=== PATIENT | female | born 1970 | race Caucasian/White ===

== ENCOUNTER 2017-02-08 06:11 | Emergency (ER) | payer BC ==
[2017-02-08] MEDS ORDERED: Ondansetron INJ* 2 MG/ML VIAL IV ONE (06:36)
[2017-02-08] MEDS ORDERED: NS 0.9% 1000 ML* 1,000 ML IV ONE (06:36)
[2017-02-08] MEDS ORDERED: Ondansetron INJ* 2 MG/ML VIAL ONE (07:25)
[2017-02-08 07:27] LABS: Hematocrit 39 % (35-47); Hemoglobin 12.9 g/dl (12.0-16.0); Mean Corpuscular HGB Conc 33 g/dl (31-36); Mean Corpuscular Hemoglobin 26 pg (27-31); Mean Corpuscular Volume 77 fL (80-97); Mean Platelet Volume 9 um3 (7.4-10.4); Red Blood Count 5.04 10^6/ul (4.0-5.4); Red Cell Distribution Width 15 % (10.5-15); White Blood Count 10.9 10^3/ul (3.5-10.8)
[2017-02-08 07:41] LABS: Urine Bilirubin Negative (Negative); Urine Glucose Negative (Negative); Urine Nitrite Negative (Negative)
[2017-02-08 07:47] LABS: ALT 8 U/L (7-52); AST 10 U/L (13-39); Albumin 3.9 g/dL (3.2-5.2); Alkaline Phosphatase 49 U/L (34-104); Anion Gap 7 mmol/L (2-11); BUN/Creatinine Ratio 14.3 (8-20); Blood Urea Nitrogen 12 mg/dL (6-24); C Reactive Protein 3.68 mg/L (< 5.00); CO2 Carbon Dioxide 22 mmol/L (22-32); Chloride 105 mmol/L (101-111); EGFR African American 93.9 (>60); Glucose 107 mg/dL (70-100); Lipase 18 U/L (11.0-82.0); Potassium 4.1 mmol/L (3.5-5.0); Sodium 134 mmol/L (133-145); Total Protein 6.9 g/dL (6.4-8.9)
[2017-02-08 08:44] VITALS: BP 133/74
--- NOTE | 2017-02-08 09:09 | RAD ---
INDICATION: Right upper quadrant pain. COMPARISON: Correlation is made with a prior study from May 03, 2016. TECHNIQUE: Multiple real-time images of the right upper quadrant were obtained. FINDINGS: There are multiple gallstones present. No gallbladder wall thickening or pericholecystic fluid is present. The patient had tenderness when scanning directly over the gallbladder. No intra or extrahepatic ductal distention is present. The common bile duct measured 0.2 cm in diameter. The liver is normal in size without significant focal abnormality. The pancreas is partially obscured by overlying bowel gas. The right kidney is normal in size without evidence for hydronephrosis. IMPRESSION: CHOLELITHIASIS WITH PAIN DIRECTLY OVER THE GALLBLADDER POSSIBLY REPRESENTING EARLY ACUTE CHOLECYSTITIS.
--- NOTE | 2017-02-08 13:54 | CONS ---
CONSULTATION REPORT: DATE OF CONSULTATION: 02/08/17 PATIENT OF: Dr. Resendez in emergency room. REFERRED TO: Bassam Stevens MD. REASON FOR CONSULTATION: Right upper quadrant abdominal pain. HISTORY OF PRESENT ILLNESS: Ms. Arellano is a pleasant 46-year-old female who presented to the emerg ency room earlier this morning with complaints of 24 hours of worsening right upper quadrant abdomin al pain. She had similar pain in the past on and off for the past 2 years in account to her known h istory of cholelithiasis. She notes that she had multiple CT scans in the past due to her SHOWER MAID issues that showed cholelithiasis and she notes that the pain usually is tolerable and goes away with the exception of earlier this morning when it got worse with associated nausea, but denies any vomiting. Her pain eventually got better upon arrival to the ED; however, her ultrasound showed possibility of positive Siu sign for which we were asked to see the patient for further evaluation. She note s a history of multiple SHOWER MAID procedures and a laparoscopy in the past due to adhesions. Approximately 20 years ago or so, the patient had 2 episodes of ectopic for which she had multiple diag nostic laparoscopies in this account followed by more laparoscopies for lysis of adhesions. Her mos t recent surgery was laparoscopy back on 01/24/16, with lysis of adhesions and small bowel resection with oophorectomy due to adhesions. She otherwise is a relatively healthy middle-aged female who a ppears to be comfortable at this time of consultation. She notes associated nausea with her pain th at is mostly localized to the right upper quadrant with no radiation or any other associated symptom s. She denied any fever, chills, changes in the color of stool or urine or jaundice. PAST MEDICAL HISTORY: As mentioned above, significant for hypothyroidism and multiple SHOWER MAID procedure s related to ectopic with complicated adhesions that required a small bowel resection in t he most recent surgery. PAST SURGICAL HISTORY: Significant for ectopic with diagnostic laparoscopy multiple times in the past, most recently a year ago with lysis of adhesions and resection of a small portion of s mall bowel as well as a left oophorectomy. She also has history of left-sided nephrolithiasis. CURRENT MEDICATIONS: Her current medications at home include: 1. Synthroid 137 mcg once daily. 2. Zofran 8 mg ODT q.6 hours as needed for nausea. 3. Vicodin every 6 hours as needed for pain. ALLERGIES: She is allergic to PENICILLIN, SULFA, TETRACYCLINE and ERYTHROMYCIN. FAMILY HISTORY: The patient is . 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 SOCIAL HISTORY: The patient is a nonsmoker who drinks alcohol rarely and denies illicit drug use. REVIEW OF SYSTEMS: See HPI, otherwise negative. She denies any headache, dizziness, blurred vision or diplopia. No cough, sore throat, wheezes, shortness of breath, or chest pain. No back pain, fl ank pain, hematuria, dysuria, or urinary frequency. She admits to right upper quadrant abdominal pa in with associated nausea, but denies any vomiting, changes in the bowel habits, jaundice, or change in the color of stool or urine. No fever, chills, night sweats or recent weight loss. PHYSICAL EXAMINATION: GENERAL: She is a pleasant healthy appearing middle-aged female in no acute d istress or discomfort at the time of consultation. VITALS: Her most recent set of vitals reveal temperature of 98.4, pulse of 84, blood pressure 133/7 4, and O2 sat of 98% on room air. HEENT: Sclerae anicteric. PERRLA. EOMs intact. Oropharynx is pink, moist with no exudate. NECK: Supple. Trachea midline. No cervical adenopathy, thyromegaly, or JVD. LUNGS: Clear to auscultation bilaterally. HEART: Regular rate and rhythm. Normal S1 and S2 without rubs, murmurs, or gallops. BACK: With normal curvature. No CVA tenderness. BREASTS: Deferred at this time. ABDOMEN: Soft and nondistended. There is mild right upper quadrant tenderness on deep palpation no avinash, but no rigidity, guarding, or rebound tenderness. There is no hernias, masses, or hepatospleno megaly. Small incisions from prior multiple laparoscopies noted, all well healed, with no evidence of any incisional hernias. Siu sign was negative. EXTREMITIES: Without cyanosis, clubbing, or edema. NEUROLOGIC: Grossly intact. RECTAL: Deferred at this time. LABORATORY WORKUP: The patient had a CBC showing a white count of 10,900, hemoglobin 12.9, hematocr it 39, and platelets of 279,000. Her chemistry was essentially within normal limits including LFTs, amylase, and lipase as well as C- reactive protein. Her urine was clear and negative for test. ACCESSORY DIAGNOSTIC DATA: The patient had a right upper quadrant ultrasound that revealed evidence of cholelithiasis with very mild pain showing sonographic Siu sign, but no wall thickening or pe richolecystic fluid. IMPRESSION: A 46-year-old female with recurrent right upper quadrant abdominal pain, likely in acco unt of symptomatic cholelithiasis. PLAN: I discussed with the patient the findings of her physical exam as well as ultrasound. She ap pears to be very comfortable at this time and she wishes to go home. I discussed with her the optio n of going forward with surgery today given her ongoing intermittent symptoms; however, the patient has plans at home for the next couple of months and she would like to postpone surgery if she could until she is ready. I discussed with her the necessity to follow up with us in the office next week to discuss surgery in more details and hopefully do it electively sometime in the near future. She appears to understand and she will return to the emergency room if there is any recurrent or worsen ing abdominal pain. Otherwise, she will be clinically stable for discharge and will follow up with us as an outpatient next week. JODY KIDD [id number]/[facility] #: [id number]
--- NOTE | 2017-02-09 07:57 | ED ---
Lakeisha South Alfonso, scribed for Adam Resendez MD on 02/08/17 at 0731 . Abdominal Pain/Female - HPI Summary HPI Summary: This patient is a 46 y.o F presenting to [facility] c/o sharp left flank pain which began a few days ago. The pain is rated in severity 5-6/10 at its worst and currently 1/10. The pain does not radiate. Secondary to the pain, she awoke at 0400 with a headache and nausea. Denies vomiting, diarrhea, SOB, and CP. Sx alleviated spontaneously and aggravated by nothing. She is currently experiencing a menstrual period. PMHx of renal calculi, hypothyroidism, and chronic constipation. PSHx of section, and small bowel resection. - History of Current Complaint Chief Complaint: EDAbdPain Stated Complaint: DIZZY/RUQ PAIN/NAUSEA Time Seen by Provider: 02/08/17 07:14 Hx Obtained From: Patient Hx Last Menstrual Period: 07/05/15 Onset/Duration: Sudden Onset, Lasting Days - a few, Resolved Timing: Constant - while present Severity Initially: Moderate Severity Currently: Mild Pain Intensity: 1 Pain Scale Used: 0-10 Numeric Location: Flank - left Radiates: No Character: Sharp Aggravating Factor(s): Nothing Alleviating Factor(s): Nothing Associated Signs and Symptoms: Positive: Nausea, Other: - Negative SOB; Positive Headache. Negative: Chest Pain, Vomiting, Diarrhea Allergies/Adverse Reactions: Allergies Allergy/AdvReac Type Severity Reaction Status Date / Time Penicillins Allergy Intermediate Rash Verified 02/08/17 06:32 Sulfa Drugs Allergy Intermediate Rash Verified 02/08/17 06:32 Tetracycline Allergy Intermediate Rash Verified 02/08/17 06:32 Erythromycin AdvReac Intermediate N/V Verified 02/08/17 06:32 Home Medications: Home Medications Ondansetron [Zofran 8 MG Odt] 8 mg PO Q6HR PRN 02/08/17 [History Confirmed 02/08] PMH/Surg Hx/FS Hx/Imm Hx Endocrine/Hematology History: Reports: Hx Thyroid Disease - Hypo Denies: Hx Diabetes Respiratory History: Denies: Hx Asthma - Cancer History Cancer Type, Location and Year: ECTOPIC WITH REMOVAL OF FALLOPIAN TUBE , X2 Hx Chemotherapy: No Hx Radiation Therapy: No - Surgical History Surgery Procedure, Year, and Place: LAPEROTXOPY, SINUS SURGERY 2003, ECTOPIC WITH REMOVAL OF FALLOPIAN TUBE, X2 Infectious Disease History: No Infectious Disease History: Denies: Traveled Outside the [place] in Last 30 Days - Family History Known Family History: Positive: Hypertension - Social History Alcohol Use: Occasionally Substance Use Type: Reports: None Smoking Status (MU): Never Smoked Tobacco Review of Systems Negative: Chest Pain Negative: Shortness Of Breath Positive: Abdominal Pain - Left flank pain, Nausea. Negative: Vomiting, Diarrhea Positive: Headache All Other Systems Reviewed And Are Negative: Yes Physical Exam - Summary Physical Exam Summary: VITAL SIGNS: Reviewed. GENERAL: Patient is an overweight female who is lying comfortable in the stretcher. Patient is not in any acute respiratory distress. HEAD AND FACE: Normocephalic and atraumatic. EYES: PERRLA, EOMI x 2, No injected conjunctiva. EARS: Hearing grossly intact. Ear canals and tympanic membranes are WNL. MOUTH: Oropharynx within normal limits. NECK: Supple, trachea is midline, no adenopathy, no JVD. CHEST: Symmetric, no tenderness at palpation LUNGS: Clear to auscultation bilaterally. No wheezing or crackles. CVS: RRR, S1 and S2 present, no murmurs or gallops appreciated. ABDOMEN: Soft. Positive RUQ tenderness. No CVA tenderness. No signs of distention. Positive bowel sounds. No rebound no guarding, and no masses palpated. No abdominal bruit or pulsations. EXTREMITIES: FROM in all major joints, no edema, no cyanosis or clubbing. NEURO: Alert and oriented x 3. No acute neurological deficits. Speech is normal. SKIN: Dry and warm Triage Information Reviewed: Yes Vital Signs On Initial Exam: Initial Vitals Temp Pulse Resp BP Pulse Ox 97.5 F 65 18 135/92 100 02/08/17 06:18 02/08/17 06:18 02/08/17 06:18 02/08/17 06:18 02/08/17 06:18 Vital Signs Reviewed: Yes - Radha Coma Scale Coma Scale Total: 15 Diagnostics - Vital Signs Vital Signs Temp Pulse Resp BP Pulse Ox 02/08/17 06:30 98.5 F 67 16 126/75 100 02/08/17 06:18 97.5 F 65 18 135/92 100 - Laboratory Lab Results: Lab Results 02/08/17 02/08/17 02/08/17 Range/Units 06:55 06:55 06:55 WBC 10.9 H (3.5-10.8) 10^3/ul RBC 5.04 (4.0-5.4) 10^6/ul Hgb 12.9 (12.0-16.0) g/dl Hct 39 (35-47) % MCV 77 L (80-97) fL MCH 26 L (27-31) pg MCHC 33 (31-36) g/dl RDW 15 (10.5-15) % Plt Count 279 (150-450) 10^3/ul MPV 9 (7.4-10.4) um3 Neut % (Auto) 83.6 H (38-83) % Lymph % (Auto) 9.6 L (25-47) % Schleicher % (Auto) 4.7 (1-9) % Eos % (Auto) 1.5 (0-6) % Baso % (Auto) 0.6 (0-2) % Absolute Neuts (auto) 9.1 H (1.5-7.7) 10^3/ul Absolute Lymphs (auto) 1.0 (1.0-4.8) 10^3/ul Absolute Monos (auto) 0.5 (0-0.8) 10^3/ul Absolute Eos (auto) 0.2 (0-0.6) 10^3/ul Absolute Basos (auto) 0.1 (0-0.2) 10^3/ul Absolute Nucleated RBC 0 10^3/ul Nucleated RBC % 0 Sodium 134 (133-145) mmol/L Potassium 4.1 (3.5-5.0) mmol/L Chloride 105 (101-111) mmol/L Carbon Dioxide 22 (22-32) mmol/L Anion Gap 7 (2-11) mmol/L BUN 12 (6-24) mg/dL Creatinine 0.84 (0.51-0.95) mg/dL Est GFR ( Amer) 93.9 (>60) Est GFR (Non-Af Amer) 73.0 (>60) BUN/Creatinine Ratio 14.3 (8-20) Glucose 107 H (70-100) mg/dL Lactic Acid 1.0 (0.5-2.0) mmol/L Calcium 9.0 (8.6-10.3) mg/dL Total Bilirubin 0.60 (0.2-1.0) mg/dL AST 10 L (13-39) U/L ALT 8 (7-52) U/L Alkaline Phosphatase 49 (34-104) U/L C-Reactive Protein 3.68 (< 5.00) mg/L Total Protein 6.9 (6.4-8.9) g/dL Albumin 3.9 (3.2-5.2) g/dL Globulin 3.0 (2-4) g/dL Albumin/Globulin Ratio 1.3 (1-3) Lipase 18 (11.0-82.0) U/L Beta HCG, Quant < 0.60 mIU/mL Urine Color Urine Appearance Urine pH (5-9) Ur Specific [place] (1.010-1.030) Urine Protein (Negative) Urine Ketones (Negative) Urine Blood (Negative) Urine Nitrate (Negative) Urine Bilirubin (Negative) Urine Urobilinogen (Negative) Ur Leukocyte Esterase (Negative) Urine Glucose (Negative) 02/08/17 Range/Units 07:30 WBC (3.5-10.8) 10^3/ul RBC (4.0-5.4) 10^6/ul Hgb (12.0-16.0) g/dl Hct (35-47) % MCV (80-97) fL MCH (27-31) pg MCHC (31-36) g/dl RDW (10.5-15) % Plt Count (150-450) 10^3/ul MPV (7.4-10.4) um3 Neut % (Auto) (38-83) % Lymph % (Auto) (25-47) % Schleicher % (Auto) (1-9) % Eos % (Auto) (0-6) % Baso % (Auto) (0-2) % Absolute Neuts (auto) (1.5-7.7) 10^3/ul Absolute Lymphs (auto) (1.0-4.8) 10^3/ul Absolute Monos (auto) (0-0.8) 10^3/ul Absolute Eos (auto) (0-0.6) 10^3/ul Absolute Basos (auto) (0-0.2) 10^3/ul Absolute Nucleated RBC 10^3/ul Nucleated RBC % Sodium (133-145) mmol/L Potassium (3.5-5.0) mmol/L Chloride (101-111) mmol/L Carbon Dioxide (22-32) mmol/L Anion Gap (2-11) mmol/L BUN (6-24) mg/dL Creatinine (0.51-0.95) mg/dL Est GFR ( Amer) (>60) Est GFR (Non-Af Amer) (>60) BUN/Creatinine Ratio (8-20) Glucose (70-100) mg/dL Lactic Acid (0.5-2.0) mmol/L Calcium (8.6-10.3) mg/dL Total Bilirubin (0.2-1.0) mg/dL AST (13-39) U/L ALT (7-52) U/L Alkaline Phosphatase (34-104) U/L C-Reactive Protein (< 5.00) mg/L Total Protein (6.4-8.9) g/dL Albumin (3.2-5.2) g/dL Globulin (2-4) g/dL Albumin/Globulin Ratio (1-3) Lipase (11.0-82.0) U/L Beta HCG, Quant mIU/mL Urine Color Yellow Urine Appearance Clear Urine pH 6.0 (5-9) Ur Specific [place] 1.012 (1.010-1.030) Urine Protein Negative (Negative) Urine Ketones Trace H (Negative) Urine Blood Negative (Negative) Urine Nitrate Negative (Negative) Urine Bilirubin Negative (Negative) Urine Urobilinogen Negative (Negative) Ur Leukocyte Esterase Negative (Negative) Urine Glucose Negative (Negative) Result Diagrams: 02/08/17 06:55 02/08/17 06:55 Lab Statement: Any lab studies that have been ordered have been reviewed, and results considered in the medical decision making process. - Ultrasound No standard instances Ultrasound Interpretation: Positive (See Comments) Ultrasound Interpretation Completed By: Radiologist - CHOLELITHIASIS WITH PAIN DIRECTLY OVER THE GALLBLADDER POSSIBLY REPRESENTING EARLY ACUTE CHOLECYSTITIS. Re-Evaluation - Re-Evaluation First Eval Re-Evaluation Time: 10:46 Change: Improved Comment: Pt is feeling significantly better. She has no pain, nausea or vomiting. Abdominal Pain Fem Course/Dx - Course Course Of Treatment: This patient is a 46 y.o F presenting to [facility] c/o sharp left flank pain which began a few days ago. The pain is rated in severity 5-6/ 10 at its worst and currently 1/10. The pain does not radiate. Secondary to the pain, she awoke at 0400 with a headache and nausea. Denies vomiting, diarrhea, SOB, and CP. Sx alleviated spontaneously and aggravated by nothing. She is currently experiencing a menstrual period. PMHx of renal calculi, hypothyroidism , and chronic constipation. PSHx of section, and small bowel resection. Test results show an increase in WBC of 10.9 without bands. Glucose of 107. AST within normal limits. Urinalysis negative for UTI. Abdomen US shows cholelithiasis with pain directly over the gallbladder. At this point, the patient was given IV fluids. She is asymptomatic. The symptoms have resolved. I discussed the case with a PA from Dr. Stevens's office (Mendoza) who spoke with Dr. Stevens. Dr. Stevens recommended that the patient be discharged to home with pain medication and follow up in the office in the next few days. This plan has been discussed with the patient and they agree. I gave the patient instructions to return to the ED if they develop any increase in pain, nausea, vomiting, fever, or chills. The patient understands and agrees. She is hemodynamically stable and A&Ox3. - Diagnoses Differential Diagnosis: Positive: Gall Bladder Disease, Hepatitis, Pancreatitis Provider Diagnoses: Cholelithiasis - Provider Notifications Discussed Care Of Patient With: Bassam Stevens Time Discussed With Above Provider: 09:47 Instructed by Provider To: Have Pt Call For Appt. - Discussed with a PA from Dr. Stevens's office (Mendoza) who spoke with Dr. Stevens. He recommended that the pt be discharged to home and follow up in the office. He requested pain medications for the pt with discharge. Discharge - Discharge Plan Condition: Stable Disposition: HOME Prescriptions: HYDROcodone/ACETAMIN 5-325 MG* [[place] 5-325 TAB*] 1 tab PO Q6H PRN #10 tab MDD 4 tabs / day PRN Reason: Pain Patient Education Materials: Gallstones (ED) Referrals: Bassam Stevens MD [Medical Doctor] - 3 Days (Call Dr. Stevens's office to schedule an appointment. ) The documentation as recorded by the scribe, Caetta,Shamir accurately reflects the service I personally performed and the decisions made by me, Adam Resendez MD.
== END 2017-02-08 11:05 | disposition home or self-care (01) ==
LOC: ED 06:11
DX: K80.20 Calculus of gallbladder without cholecystitis without obstruction (principal); R10.84 Generalized abdominal pain; R11.0 Nausea; R51 Headache
CPT/HCPCS: 36415; 76705; 80053; 81003; 83605; 83690; 84702; 85025; 86140; 96374; 96376; 99282; J2405

== ENCOUNTER 2017-04-08 13:59 | Emergency (ER) | payer BC ==
[2017-04-08 14:12] VITALS: BP 123/67
--- NOTE | 2017-04-08 14:18 | UC ---
Complaint Female HPI - HPI Summary HPI Summary: several day history of frequency and dysuria. Just began menses, which tends to relieve urethral discomfort but has not done so. Continues to have bladder spasm and some mild back pain. No fever or chills. Remote history of UTI. Has had recent treatment with clindamycin post dental fracture. - History Of Current Complaint Chief Complaint: UCGU Stated Complaint: URINARY COMPLAINT Time Seen by Provider: 04/08/17 14:15 Hx Obtained From: Patient Hx Last Menstrual Period: 04/07/17 ?: No Onset/Duration: Gradual Onset, Lasting Days - 3 Timing: Intermittent, Lasting Minutes Severity Initially: Mild Severity Currently: Moderate Character: Dull, Burning Aggravating Factor(s): Urination Alleviating Factor(s): Nothing Associated Signs And Symptoms: Positive: Back Pain - Risk Factors Ectopic Risk Factor: Negative Ovarian Torsion Risk Factor: Negative - Allergies/Home Medications Allergies/Adverse Reactions: Allergies Allergy/AdvReac Type Severity Reaction Status Date / Time Penicillins Allergy Intermediate Rash Verified 04/08/17 14:08 Sulfa Drugs Allergy Intermediate Rash Verified 04/08/17 14:08 Tetracycline Allergy Intermediate Rash Verified 04/08/17 14:08 Erythromycin AdvReac Intermediate N/V Verified 04/08/17 14:08 Home Medications: Home Medications Sertraline* [Zoloft*] 25 mg PO DAILY 04/08/17 [History Confirmed 04/08/17] PMH/Surg Hx/FS Hx/Imm Hx Endocrine History: Hypothyroidism - Surgical History Surgical History: Yes Surgery Procedure, Year, and Place: LAPEROSCOPY, SINUS SURGERY 2003, ECTOPIC WITH REMOVAL OF FALLOPIAN TUBE, X2 - Family History Known Family History: Positive: Hypertension - Social History Occupation: Employed Full-time Lives: With Family Alcohol Use: Occasionally Substance Use Type: None Smoking Status (MU): Never Smoked Tobacco Review of Systems Constitutional: Negative Skin: Negative Eyes: Negative ENT: Other - recent dental fracture being addressed. Respiratory: Negative Cardiovascular: Negative Gastrointestinal: Other - no diarrhea as a result of clinda Genitourinary: Dysuria, Frequency, Urgency Motor: Negative Neurovascular: Negative Musculoskeletal: Negative Neurological: Negative Psychological: Negative All Other Systems Reviewed And Are Negative: Yes Physical Exam Triage Information Reviewed: Yes Appearance: Well-Appearing, No Pain Distress Vital Signs: Initial Vital Signs Temp 98.2 F 04/08/17 14:01 Pulse 70 04/08/17 14:01 Resp 14 04/08/17 14:01 BP 123/67 04/08/17 14:01 Pulse Ox 100 04/08/17 14:01 Vital Signs Reviewed: Yes ENT Exam: Normal Respiratory: Positive: Lungs clear, Normal breath sounds Cardiovascular: Positive: RRR, No Murmur Abdomen Description: Positive: Nontender, No Organomegaly, Soft. Negative: CVA Tenderness (R), CVA Tenderness (L) Neurological Exam: Normal Psychological Exam: Normal Skin Exam: Normal Diagnostics - Laboratory Diagnostic Studies Completed/Ordered: UA with white cells and esterase positive. Complaint Female Dx - Course Course Of Treatment: macrodantin for UTI\pyridium as bladder analgesic - Differential Dx/Diagnosis Provider Diagnoses: UTI Discharge - Discharge Plan Condition: Stable Disposition: HOME Prescriptions: Nitrofurantoin Monohyd Macro [Macrobid] 100 mg PO BID #14 cap Phenazopyridine 200 mg (NF) [Pyridium 200 MG tab *] 200 mg PO TID PRN #6 tab PRN Reason: Spasms - Bladder Patient Education Materials: Urinary Tract Infection in Women (ED) Additional Instructions: Begin macrobid for treatment of bladder infection. Use pyridium for bladder spasm. The culture will be available in 2 days and if you need a change of antibiotics you will be notified. Ensure a high intake of fluids. Take pyridium with food, please, because it can cause nausea.
== END 2017-04-08 14:46 | disposition home or self-care (01) ==
LOC: UCCORT 13:59
DX: N39.0 Urinary tract infection, site not specified (principal); E03.9 Hypothyroidism, unspecified; Z87.440 Personal history of urinary (tract) infections; Z88.3 Allergy status to other anti-infective agents; Z88.0 Allergy status to penicillin; Z88.2 Allergy status to sulfonamides
CPT/HCPCS: 81003; 87077; 87086; 87186; 99212; G0463

== ENCOUNTER 2018-06-05 15:10 | Emergency (ER) | payer BC ==
[2018-06-05 15:50] VITALS: BP 154/85
--- NOTE | 2018-06-06 08:07 | UC ---
- Progress Note Progress Note: NO X-RAYS 06/05/18 Discharge - Sign-Out/Discharge Documenting (check all that apply): Patient Departure All imaging exams completed and their final reports reviewed: No Studies - Discharge Plan Condition: Fair Disposition: LEFT WITHOUT BEING SEEN Referrals: Antonietta Colon MD [Primary Care Provider] - - Billing Disposition and Condition Condition: FAIR Disposition: Left Without Being Seen
== END 2018-06-05 16:58 | disposition left against medical advice (07) ==
LOC: UCEAST 15:10
DX: Z53.21 Procedure and treatment not carried out due to patient leaving prior to being seen by health care provider (principal)

== ENCOUNTER 2018-11-15 16:15 | Emergency (ER) | payer SELFPAY ==
--- OUTSIDE RECORDS SUMMARY | 2018-11-15 16:24 | XMS REPORT | Continuity of Care Document ---
:1970 External Reference #:[id number] Author Name Kiera Gonzalez Care Team Providers Name Role Phone Antonietta Colon MD Primary Care Physician Unavailable Payers Date Identification Numbers Payment Provider Subscriber Effective: 2015 Policy Number: [id number] [employer] Charlotte Bustos PayID: [id number] [address] [address] [place] [address] Advance Directives Description No Information Available Problems Date Description Provider Status Onset: 10/27/2015 Localized, primary osteoarthritis May Lenz M.D. Active Family History Date Family Member(s) Observation Comments General Hypertension Social History Type Date Description Comments Sex Unknown Marital Status Single Lives With Boyfriend Occupation licensed mortgage loan officer Tobacco Use Start: Unknown Never Smoked Cigarettes Smoking Status Reviewed: 10/31/18 Never Smoked Cigarettes ETOH Use Currently consumes 3-4 glasses of wine alcohol per week Tobacco Use Start: Unknown Patient has never smoked Recreational Drug Use Denies Drug Use Exercise Type/Frequency Exercises sporadically Allergies, Adverse Reactions, Alerts Date Description Reaction Status Severity Comments 10/27/2015 Penicillin Active 10/27/2015 Sulfa Antibiotics Active 09/20/2018 Erythromycin Active Medications Medication Date Status Form Strength Qnty SIG Indications Ordering Provider Synthroid / Active Tablets 150mcg 1 by mouth Unknown 0000 every day Ibuprofen / Active Capsules 200mg as needed Unknown 0000 Citalopram / Active Tablets 10mg take 1.5 Jander, Hydrobromide 0000 tabs daily MD Antonietta by mouth Zofran / Active prn for Unknown 0000 migraines Acid Security Architect / Active Tablets 150mg 1 by mouth Unknown 0000 twice a day Naproxen 10/27/ Hx Tablets 500mg 60tabs 1 tablet M17.11 Ginette 2015 - with food Bordoni, 05/02/ by mouth 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 Ortho / Hx Tablets 0.18/0.215 1 by mouth Unknown Tri-Cyclen 0000 - /0.25 every day (28) 05/01/ mg-35 mcg 2016 Zoloft / Hx Tablets 25mg 1 by mouth Unknown 0000 - every day 2017 Medications Administered in Office Medication Date Status Form Strength Qnty SIG Indications Ordering Provider Celestone 3 mg Administered Injection Delfin M and 3mg 018 MD Beth Celestone 3 mg Administered Injection Delfin M and 3mg 017 MD Beth Immunizations Description No Information Available Vital Signs Date Vital Result Comment 10/31/2018 8:15am Height 65 inches 5'5" Heart Rate 62 /min BP Systolic 138 mmHg BP Diastolic 76 mmHg O2 % BldC Oximetry 100 % 09/20/2018 8:33am Height 65 inches 5'5" Heart Rate 72 /min BP Systolic 128 mmHg BP Diastolic 86 mmHg Body Temperature 98.3 F Pain Level 2 02/15/2018 8:11am Height 65 inches 5'5" Weight 174.00 lb Heart Rate 76 /min BP Systolic Sitting 110 mmHg BP Diastolic Sitting 64 mmHg Respiratory Rate 16 /min Pain Level 3 BMI (Body Mass Index) 29.0 kg/m2 05/04/2017 10:41am Height 65 inches 5'5" Weight 174.00 lb BP Systolic Sitting 122 mmHg BP Diastolic Sitting 66 mmHg Respiratory Rate 16 /min Pain Level 1 with activity can go up to an 8 BMI (Body Mass Index) 29.0 kg/m2 10/27/2015 9:35am Height 65 inches 5'5" Weight 180.00 lb Heart Rate 77 /min BP Systolic 127 mmHg BP Diastolic 82 mmHg BMI (Body Mass Index) 30.0 kg/m2 Results Description No Information Available Procedures Date Code Description Status 02/15/2018 95928 Rad Shoulder Comp, Min. 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 right knee M25.561 Pain in right knee M25.461 Effusion, right knee Plan of Treatment 10/31/2018 - ALISIA Sands03.9 Hypothyroidism, unspecifiedFollow up: follow up in 1 monthRecommendations:Diet: AIP (autoimmune paleo) - mostly plant based with healthy sources of protein. No dairy, No grains, No sugar, No Nightshades. Remove sugar alcohols and only use very sparingly these have been shownto affect your microbiome in a negative way, some evidence that shows leads to obesity and continuesto feed sugar cravings. Foods that can negatively impact immune function: Lectins: Lectins are carbohydrate-binding proteins that are present in all foods but can be difficult to digest and increase gut barrier damage. Toxic lectins are found in legumes and grains. Soaking, sprouting, and fermenting decrease lectin content. Phytic Acid: phytic acid is a component of grains, seeds, and legumes that limits the activity of digestive enzymes. This can damage the gut barrier and contribute to dysbiosis. Soaking, sprouting, and fermenting decrease phytic content. Gluten: gluten is a component of many grain products such as wheat, barley and rye. Exposure to gluten can activate zonulin in the intestines and contribute to intestinal permeability. Lactose and Casein: certain components of milk can contribute to intestinal permeability, especially if they have gone through traditional pasteurization andhomogenization. The negative effects of the resulting protein changes can be decreased, as in the case of grass fed milk from cows. Nightshade : These plants contain an alkaloid that can be detrimental to the intestinal barrier. Nightshades include tomatoes, peppers, and eggplants. These are some of the most inflammatory foods: alcohol, caffeine, sugar, milk, gluten products , fast food, fried foods, processed meat, corn, trans fats, [place]-6 fatty acids , cheese. Possible allergic/Inflammatory Foods: tree nuts, soy, eggs, shellfish , fish, gluten, meat, yogurt Dr. Hernández - Book and cookbook Ketotarian Consider making bone broth and drinking 2x daily Anti-inflammatory Foods : organic vegetables, organic fruits, raw seeds, organic herbs & spices, extra virgin olive oil, unrefined coconut oil.R53.83 Other fatigueRecommendations:suspect multifactorial. Sleep is very important at least 7-9 hours a night. Exercise is important - swimming is low impact on knee Meditation 5 minutes a day Breathing 4-7-8 (Slade Reaves you tube) Podcasts [facility] - Dr. Macias Broken Brain series - Dr. MaciasM25.562 Pain in left kneeRecommendations:Nutrient Support for Inflammation: [place]-3 fatty acids - 5732-2080 mg/day (non GMO, low Mercury fish oil) Turmeric - 850 - 1000 mg/day split in several doses Vitamin C 1000 mg day Zinc 15 mg day N- acetyl cysteine 500 mg day Vitamin D 2000 units/day Exercise: 30 mins 5-7 days a week - low impact continue ortho treatments
[2018-11-15 16:47] VITALS: BP 151/89
--- NOTE | 2018-11-15 18:17 | UC ---
Respiratory Complaint HPI - HPI Summary HPI Summary: pt c/o chest pain s/p choking on food earlier this afternoon while eating a turkey sandwich. Pt states that she momentarily passed out and heimlich manuever was performed. Pt states that she " was shaken, but cleaned herself up and continued to work." Pt works at a doctor's office. Pt reports that an ambulance was called but she declined. Pt know reports that she now has chest discomfort with movement but has no difficulty breathing - History of Current Complaint Chief Complaint: UCChestPain Stated Complaint: CHEST AND BACK PAIN Time Seen by Provider: 11/15/18 17:29 Hx Obtained From: Patient Hx Last Menstrual Period: April 2018 ?: No Onset/Duration: Gradual Onset, Lasting Hours Timing: Intermittent Episodes - with movement Severity Initially: Mild Severity Currently: Mild Pain Intensity: 2 Aggravating Factors: Deep Breaths Alleviating Factors: Spontaneous Resolution Associated Signs And Symptoms: Positive: Negative - Risk Factors Pulmonary Embolism Risk Factors: Negative Cardiac Risk Factors: Negative Pseudomonas Risk Factors: Negative Tuberculosis Risk Factors: Negative - Allergies/Home Medications Allergies/Adverse Reactions: Allergies Allergy/AdvReac Type Severity Reaction Status Date / Time erythromycin base Allergy Rash Verified 11/15/18 16:31 Penicillins Allergy Rash Verified 11/15/18 16:31 Sulfa (Sulfonamide Allergy Rash Verified 11/15/18 16:31 Antibiotics) Tetracyclines Allergy Nausea And Verified 11/15/18 16:31 Vomiting PMH/Surg Hx/FS Hx/Imm Hx Previously Healthy: Yes - Surgical History Surgical History: Yes Surgery Procedure, Year, and Place: LAPEROSCOPY, SINUS SURGERY 2003, ECTOPIC WITH REMOVAL OF FALLOPIAN TUBE, X2 - Family History Known Family History: Positive: Unknown, Hypertension - Social History Occupation: Employed Full-time Lives: With Family Alcohol Use: Occasionally Substance Use Type: None Smoking Status (MU): Never Smoked Tobacco Have You Smoked in the Last Year: No Review of Systems All Other Systems Reviewed And Are Negative: Yes Constitutional: Positive: Negative Skin: Positive: Negative Eyes: Positive: Negative ENT: Positive: Negative Respiratory: Positive: Negative Cardiovascular: Positive: Chest Pain - that is with movement Gastrointestinal: Positive: Negative Genitourinary: Positive: Negative Motor: Positive: Negative Neurovascular: Positive: Negative Musculoskeletal: Positive: Negative Neurological: Positive: Negative Psychological: Positive: Negative Is Patient Immunocompromised?: No Physical Exam Triage Information Reviewed: Yes Appearance: Well-Appearing Vital Signs: Initial Vital Signs Temp 98.3 F 11/15/18 16:24 Pulse 84 11/15/18 16:24 Resp 18 11/15/18 16:24 BP 151/89 11/15/18 16:24 Pulse Ox 100 11/15/18 16:24 Vital Signs Reviewed: Yes Eye Exam: Normal ENT Exam: Normal Dental Exam: Normal Neck exam: Normal Respiratory Exam: Normal Respiratory: Positive: Lungs clear, Normal breath sounds, No respiratory distress, No accessory muscle use Cardiovascular Exam: Normal Musculoskeletal Exam: Normal Neurological Exam: Normal Psychological Exam: Normal Skin Exam: Normal Diagnostics - Radiology No standard instances Radiology Interpretation Completed By: Radiologist - IMPRESSION: NO EVIDENCE FOR ACTIVE CARDIOPULMONARY DISEASE Respiratory Course/Dx - Course Course Of Treatment: I discussed with the pt the need to watch for any worsening symptoms or possiblity of aspiration pneumonia. Pt verbalized understanding and agreed to plan of care Pt was initially advised to go to ER and pt declined. - Differential Dx/Diagnosis Differential Diagnosis/HQI/PQRI: Foreign Body, Bronchitis Provider Diagnosis: Choking episode, Chest pain not due to acute coronary syndrome Discharge - Sign-Out/Discharge Documenting (check all that apply): Patient Departure All imaging exams completed and their final reports reviewed: Yes - Discharge Plan Condition: Stable Disposition: HOME Patient Education Materials: Performing the Heimlich Maneuver (ED), Foreign Body Ingestion (ED) Referrals: Antonietta Colon MD [Primary Care Provider] - If Needed Additional Instructions: Please follow up with your PCP or return to clinic if needed. Please watch for any worsening signs or symptoms and seek care immediately if you do not improve. - Billing Disposition and Condition Condition: STABLE Disposition: Home
== END 2018-11-15 18:30 | disposition home or self-care (01) ==
LOC: UCEAST 16:15
DX: R07.9 Chest pain, unspecified (principal); R09.89 Other specified symptoms and signs involving the circulatory and respiratory systems; Z88.1 Allergy status to other antibiotic agents; Z88.0 Allergy status to penicillin; Z88.2 Allergy status to sulfonamides
CPT/HCPCS: 71046; 99211; G0463

== ENCOUNTER → 2019-06-12 | Day surgery (SDC) | payer BC ==
[~2019-06-12] MED LIST: Acetaminophen IV 1GM/100ML * 1,000 MG/100 ML VIAL IVPB ONE; Acetaminophen IV 1GM/100ML * 100 ML ONE; Buffered Lidocaine 1% SYRIN* 1 ML/SYRINGE INTRADERM ONE; Bupivacaine 0.25% EPI 200,000* 30 ML SDV ONE; Bupivacaine 0.25% SDV PF* 10 ML VIAL INJ ONE; Clindamycin 900 MG/D5W BAG(*) 900 MG/50 ML BAG IVPB ONE; DiMENhydriNATE IV* 50 MG/ML VIAL IV PUSH PRN; DiMENhydriNATE IV* 50 MG/ML VIAL ONE; GENTAMICIN ADULT IVPB ONE; Glycopyrrolate IV* 0.2 MG/ML 1 ML VIAL ONE; Ketorolac INJ* 30 MG/ML 1 ML VIAL ONE; Lactated Ringers 1000 ML Bag* 1,000 ML IV SCH; Lidocaine 2% PF * 5 ML VIAL ONE; Midazolam* 1 MG/ML 2 ML VIAL (2 MG) ONE; NS 0.9% IVPB ONE; Naloxone* 0.4 MG/ML 1 ML VIAL IV PRN; Neostigmine Methylsulfate* 3 MG/3 ML SYRINGE ONE; Propofol* 10 MG/ML 20 ML BTL ONE; Rocuronium* 10 MG/ML VIAL ONE; Scopolamine 1.5 mg* PATCH ONE; Sodium Citrate/Citric Acid* 15 ML UDC ONE; Sodium Citrate/Citric Acid* 15 ML UDC PO ONE; fentaNYL* 50 MCG/ML 2 ML VIAL (100 MCG VIAL) IV PRN; fentaNYL* 50 MCG/ML 2 ML VIAL (100 MCG VIAL) ONE
--- NOTE | 2019-06-12 09:31 | BRIEFOPN ---
Brief Operative/Procedure Note - Operation Details Pre-Op Diagnosis: symptomatic cholelithiasis Post-Op Diagnosis: symptomatic cholelithiasis Procedures: laparoscopic cholecystectomy Surgeon(s)/Proceduralists: Ron Domingo Anesthesia: GETA Findings: gallbladder with stones Specimen(s)/Culture(s) Description: gallbladder Complications: none
[2019-06-12 11:52] VITALS: BP 122/66
--- NOTE | 2019-06-12 15:16 | OP ---
OPERATIVE PROCEDURE: DATE OF OPERATION: 06/12/19 DATE OF : 70 SURGEON: Thelma Negrete MD BUNDLE PERSON: JODY Marx ANESTHESIOLOGIST: Luis Fernando Moore DO ANESTHESIA: General endotracheal anesthesia. PRE-OP DIAGNOSIS: Symptomatic cholelithiasis. POST-OP DIAGNOSIS: Symptomatic cholelithiasis. OPERATIVE PROCEDURE: Laparoscopic cholecystectomy. ESTIMATED BLOOD LOSS: Minimal, less than 10 cc. SPECIMEN: Gallbladder. INDICATIONS: Ms. Arellano is a very pleasant 49-year-old female with a history of cholelithiasis that has become increasingly symptomatic. Therefore, she wished to undergo an elective laparoscopic cholecystectomy. She understood that the risks included, but were not limited to bleeding, infection, injury to nearby structures including the common bile duct, intestines, duodenum and so forth. She understood the alternatives and benefits as well and she wished to proceed. DESCRIPTION OF PROCEDURE: The patient was brought back to the operating room and placed on the operating table in the supine position. Sequential compression devices were placed on the bilateral lower extremities for DVT prophylaxis. Antibiotics with clindamycin and gentamicin were administered because the patient had a PENICILLIN allergy. General endotracheal anesthesia was induced. The patient's left arm was tucked and her abdomen was prepped and draped in normal sterile fashion. Prior to beginning the surgery, a time-out was performed verifying the patient's name, MR number, and the procedure to be performed. The patient has previously had multiple lower pelvic and gynecologic surgeries, therefore the abdomen was entered using a Veress needle in the left upper quadrant at [place] point. 0.25% Marcaine was infiltrated in the subcutaneous tissues and the Veress needle was placed through the abdomen. A saline drop test was performed which was positive and then insufflation was obtained to 15 mmHg. Next, local anesthesia was administered and an incision was made in the right upper quadrant below the costal margin at the mid- clavicular line. Using Optiview technique, a 5mm trocar was advanced through the abdominal wall. All the layers were entered under direct visualization. Once inside the abdominal cavity, a general inspection of the abdominal cavity showed that there was no injury that had been made upon entry with the Optiview trocar as well as with the Veress needle, which was in the left upper quadrant. The Veress needle was removed and then the remaining 3 trocars were placed after administering 0.25% Marcaine into the subcutaneous tissue. A 5-mm trocar was placed just above the umbilicus and a 12 mm trocar was placed just to the right of the falciform and in the right lateral mid abdomen an additional 5 mm trocar was placed. The gallbladder was noted to be nondistended and thin walled. It appeared fairly normal grossly. The fundus was grasped and elevated over the liver and then the infundibulum was also grasped and retracted anteriorly and laterally. The peritoneum was divided on either side of the gallbladder and with great care, a critical view was obtained. The cystic duct and cystic artery were both skeletonized and the liver bed visualized between the two. Pictures were taken to confirm this. After these two structures were skeletonized, clips were placed. One clip was placed distally on both these structures and 2 were placed proximally and then the cystic duct and cystic artery were then divided. The gallbladder was taken off the liver bed using electrocautery and placed into an Endo Catch bag and removed from the abdomen as a specimen. After this, liver bed was cauterized. There were some small areas of punctate bleeding that were cauterized as well. The right upper quadrant was irrigated and once hemostasis was obtained, attention was turned towards closure. The 12-mm trocar site was closed with 0- Vicryl suture using a suture passer needle. Once this was done, desufflation was obtained. All the trocars were removed under direct visualization and the skin incisions were closed using interrupted 4-0 Monocryl sutures. Sterile dressing was then placed. The patient's anesthesia was reversed and she was taken to the PACU in stable condition. At the end of the case, all counts were correct and I was present during the entirety of the case. [id number]/[facility] #: [id number] [facility]ITALKevin
== END | disposition home or self-care (01) ==
LOC: OR 05:52
PROVIDERS: ATTEND Surgery
DX: K80.10 Calculus of gallbladder with chronic cholecystitis without obstruction (principal); K21.9 Gastro-esophageal reflux disease without esophagitis; E03.9 Hypothyroidism, unspecified; Z88.0 Allergy status to penicillin; Z88.1 Allergy status to other antibiotic agents; M19.90 Unspecified osteoarthritis, unspecified site
CPT/HCPCS: 81025; 88304; A9270-GY; J1240; J1580; J1885; J2250; J2704; J2710; J3010; J3490